=== PATIENT | female | born 1965 ===

== ENCOUNTER 2020-03-28 17:02 | Outpatient (CLI) | payer OTHER | END 2020-03-28 18:00 | disposition home or self-care (01) | LOC: RAD 17:02 | DX: I10 Essential (primary) hypertension (principal); R07.89 Other chest pain ==

== ENCOUNTER 2020-04-07 16:16 | Outpatient (CLI) | payer OTHER | END 2020-04-07 18:00 | disposition home or self-care (01) | LOC: LAB 16:16 | DX: K76.0 Fatty (change of) liver, not elsewhere classified (principal); B20 Human immunodeficiency virus [HIV] disease ==